=== PATIENT | female | born 1945 | race Caucasian/White ===

== ENCOUNTER 2021-06-20 22:11 | Inpatient (IN) | payer MEDICARE, BC ==
[2021-06-20] MEDS ORDERED: SODIUM CHLORIDE 0.9% 1,000 ML IV STA (22:21)
[2021-06-20] MEDS ORDERED: ONDANSETRON 4 MG/2 ML VIAL IVP PRN (22:21)
[2021-06-20] MEDS ORDERED: MORPHINE SULFATE 4 MG/ML SYRINGE IV STA (22:21)
[2021-06-20] MEDS ORDERED: NALOXONE 0.4 MG/ML 1 ML VIAL IV PRN (22:21)
--- NOTE | 2021-06-20 22:47 | ED ---
Fall HPI - General Chief Complaint: Fall Stated Complaint: Rt Hip Fracture Time Seen by Provider: 06/20/21 22:19 Source: EMS, old records reviewed Mode of arrival: EMS Limitations: altered mental status (Dementia) - History of Present Illness Initial Comments: This is a 75-year-old female who is a fall fall from standing likely history obtained by EMS patient presents today for right hip fracture herself is unable patient has pain right hip pain but no other significant injury is noticed MD Complaint: fall -: unknown Fall From: standing When Fall Occurred: unsure Fall Witnessed: no Place Fall Occurred: senior care[facility] Loss of Consciousness: none Prolonged Down Time?: no Symptoms Prior to Fall: none Location - Extremities: Right: Thigh Severity: severe Severity scale (1-10): 9 Quality: sharp Context: tripped/slipped Associated Symptoms: denies - Related Data Home Medications Medication Instructions Recorded Confirmed Acetaminophen [Tylenol Extra 500 mg PO QID 06/20/21 06/20/21 Strength] Aspirin 81 mg PO DAILY@0700 06/20/21 06/20/21 Furosemide [Lasix] 20 mg PO DAILY@0700 06/20/21 06/20/21 LORazepam [Ativan] 0.5 mg PO TID@0700,1300,1900 06/20/21 06/20/21 Mag Hydrox/Aluminum Hyd/Simeth 30 ml PO Q6H PRN 06/20/21 06/20/21 [Mylanta Maximum Strength Liq] Memantine [Namenda] 10 mg PO BID@0700,1900 06/20/21 06/20/21 Mirtazapine [Remeron] 15 mg PO HS@1900 06/20/21 06/20/21 Omeprazole 20 mg PO HS@1900 06/20/21 06/20/21 Sertraline [Zoloft] 100 mg PO DAILY@0700 06/20/21 06/20/21 Allergies Allergy/AdvReac Type Severity Reaction Status Date / Time codeine Allergy Unknown Verified 06/20/21 22:21 zolpidem [From Ambien] Allergy Unknown Verified 06/20/21 22:21 Review of Systems ROS Statement: Those systems with pertinent positive or pertinent negative responses have been documented in the HPI. ROS Other: All systems not noted in ROS Statement are negative. Past Medical History Past Medical History: CVA/TIA, Dementia, GERD/Reflux, Hyperlipidemia, Hypertension, Osteoarthritis (OA) Additional Past Medical History / Comment(s): diverticulosis, gastritis, ulcer of esophagus History of Any Multi-Drug Resistant Organisms: None Reported Past Surgical History: No Surgical Hx Reported Past Psychological History: Depression Smoking Status: Unknown if ever smoked Past Alcohol Use History: None Reported Past Drug Use History: None Reported General Exam Limitations: altered mental status General appearance: alert, in no apparent distress Head exam: Present: atraumatic, normocephalic, normal inspection Eye exam: Present: normal appearance, PERRL, EOMI. Absent: scleral icterus, conjunctival injection, periorbital swelling ENT exam: Present: normal exam, mucous membranes moist Neck exam: Present: normal inspection. Absent: tenderness, meningismus, lymphadenopathy Respiratory exam: Present: normal lung sounds bilaterally. Absent: respiratory distress, wheezes, rales, rhonchi, stridor Cardiovascular Exam: Present: regular rate, normal rhythm, normal heart sounds. Absent: systolic murmur, diastolic murmur, rubs, gallop, clicks GI/Abdominal exam: Present: soft, normal bowel sounds. Absent: distended, tenderness, guarding, rebound, rigid Extremities exam: Present: tenderness, normal capillary refill, other (Significant right hip deformity right leg deformity). Absent: normal inspection, full ROM, pedal edema, joint swelling, calf tenderness Back exam: Present: normal inspection Neurological exam: Present: alert, oriented X3, CN II-XII intact Psychiatric exam: Present: normal affect, normal mood Skin exam: Present: warm, dry, intact, normal color. Absent: rash Course Vital Signs 06/20/21 22:21 Temperature 99.2 F Pulse Rate 69 Respiratory 18 Rate Blood Pressure 174/73 O2 Sat by Pulse 96 Oximetry - Reevaluation(s) Reevaluation #1: 06/20/21 22:45 Medical record is reviewed Reevaluation #2: 06/20/21 22:46 Pain is controlled Reevaluation #3: 06/20/21 22:46 Patient family informed results and questions answered - Consultations Consultation #1: spoke w ortho and ok for admission Medical Decision Making - Medical Decision Making 75 female to the ED for fall with right hip fracture a shunt has no other significant findings aside from that. Patient will be admitted for orthopedic evaluation treatment patient is a DO NOT RESUSCITATE no code with severe dementia - Radiology Data Radiology results: report reviewed (Chest x-ray negative for acute disease x-ray right hip is positive for fracture), image reviewed Disposition Clinical Impression: Fall, Closed right hip fracture Disposition: ADMITTED IP TO THIS HOSP Condition: Fair Is patient prescribed a controlled substance at d/c from ED?: No Referrals: Francesco Wilson MD [Primary Care Provider] - 1-2 days
[2021-06-20 23:46] LABS: Basophils % (A) 0 %; Eosinophils % (A) 0 %; HCT 33.9 % (34.0-46.0); HGB 10.9 gm/dL (11.4-16.0); Lymphocytes # (A) 0.9 k/uL (1.0-4.8); Lymphocytes % (A) 9 %; MCH 28.8 pg (25.0-35.0); MCHC 32.2 g/dL (31.0-37.0); MCV 89.6 fL (80.0-100.0); Mean Platelet Volume 7.9; Monocytes # (A) 0.6 k/uL (0-1.0); Monocytes % (A) 6 %; Neutrophils # (A) 8.1 k/uL (1.3-7.7); Neutrophils % (A) 83 %; Platelet Count 159 k/uL (150-450); RBC 3.79 m/uL (3.80-5.40); RDW 14.8 % (11.5-15.5); WBC 9.8 k/uL (3.8-10.6)
[2021-06-20 23:56] LABS: Partial Thromboplastin Time 23.5 sec (22.0-30.0); Prothrombin Time 10.7 sec (9.0-12.0)
--- NOTE | 2021-06-21 | XR ---
EXAMINATION TYPE: XR chest 1V portable DATE OF EXAM: 06/20/2021 COMPARISON: NONE HISTORY: Fall. Pain TECHNIQUE: Single view FINDINGS: There is some mild infiltrate lateral left lung base. The other lung fortune are clear. Thor acic aorta is atheromatous. There are no hilar masses. No pneumothorax. No obvious rib fracture. IMPRESSION: Small left basilar pulmonary infiltrate consistent with mild pneumonia. Normal heart.
[2021-06-21 00:08] LABS: Albumin 3.9 g/dL (3.5-5.0); Calcium 9.3 mg/dL (8.4-10.2); Magnesium 1.9 mg/dL (1.6-2.3); Phosphorus 3.5 mg/dL (2.5-4.5); Total Bilirubin 0.9 mg/dL (0.2-1.3); Total Protein 6.9 g/dL (6.3-8.2)
[2021-06-21 01:53] LABS: Appearance,Urine Cloudy (Clear); Bacteria,Urine Moderate /hpf; Bilirubin,Urine Negative (Negative); Blood,Urine Small (Negative); Color,Urine Yellow; Glucose,Urine (UA) Negative (Negative); Hyaline Casts,Urine 5 /lpf (0-2); Ketones,Urine Negative (Negative); Leukocyte Esterase,Urine Large (Negative); Mucus,Urine Many /hpf; Nitrite,Urine Negative (Negative); PH, Urine 5.5 (5.0-8.0); Protein,Urine Trace (Negative); RBC,Urine 8 /hpf (0-5); Urobilinogen,Urine <2.0 mg/dL (<2.0); WBC,Urine >182 /hpf (0-5)
[2021-06-21 06:19] LABS: Basophils # (A) 0.1 k/uL (0-0.2); Basophils % (A) 1 %; Eosinophils # (A) 0.1 k/uL (0-0.7); Eosinophils % (A) 1 %; HCT 36.8 % (34.0-46.0); HGB 11.1 gm/dL (11.4-16.0); Hypochromasia Marked; Lymphocytes # (A) 1.3 k/uL (1.0-4.8); Lymphocytes % (A) 13 %; MCH 29.4 pg (25.0-35.0); MCHC 30.3 g/dL (31.0-37.0); Mean Platelet Volume 8.4; Monocytes # (A) 0.8 k/uL (0-1.0); Monocytes % (A) 9 %; Neutrophils # (A) 7.3 k/uL (1.3-7.7); Neutrophils % (A) 75 %; Platelet Count 131 k/uL (150-450); RDW 14.4 % (11.5-15.5); WBC 9.7 k/uL (3.8-10.6)
[2021-06-21 06:31] LABS: Calcium 8.9 mg/dL (8.4-10.2)
[2021-06-21] MEDS ORDERED: AZITHROMYCIN 500 MG in SODIUM CHLORIDE 0.9% 250 ML IVPB STA (06:58)
[2021-06-21 07:00] LABS: Potassium 4.3 mmol/L (3.5-5.1)
--- NOTE | 2021-06-21 07:28 | XR ---
EXAMINATION TYPE: XR Hip RT and AP Pelvis DATE OF EXAM: 06/21/2021 COMPARISON: NONE HISTORY: Pain TECHNIQUE: A single AP view of the pelvis is obtained. Two views of the right hip are obtained. FINDINGS: There is a displaced right femoral neck comminuted fracture. Diffuse osteopenia. Severe ar thropathy left hip and degenerative change lower lumbar spine. SI joints symmetric. IMPRESSION: 1. Displaced right femoral neck fracture.
--- NOTE | 2021-06-21 07:46 | P.HPOR ---
History of Present Illness H&P Date: 06/21/21 Chief Complaint: Right hip pain The patient's a 75-year-old female with severe dementia brought in from a [facility] after a suspected fall with deformity of the right leg. She is a poor historian and gives no details. Review of Systems As per HPI Past Medical History Past Medical History: CVA/TIA, Dementia, GERD/Reflux, Hyperlipidemia, Hypertension, Osteoarthritis (OA) Additional Past Medical History / Comment(s): diverticulosis, gastritis, ulcer of esophagus History of Any Multi-Drug Resistant Organisms: None Reported Past Surgical History: Orthopedic Surgery Past Psychological History: Depression Smoking Status: Unknown if ever smoked Past Alcohol Use History: None Reported Past Drug Use History: None Reported Medications and Allergies Home Medications Medication Instructions Recorded Confirmed Type Acetaminophen [Tylenol Extra 500 mg PO QID 06/20/21 06/20/21 History Strength] Aspirin 81 mg PO DAILY@0700 06/20/21 06/20/21 History Furosemide [Lasix] 20 mg PO DAILY@0700 06/20/21 06/20/21 History LORazepam [Ativan] 0.5 mg PO TID@0700,1300,1900 06/20/21 06/20/21 History Mag Hydrox/Aluminum Hyd/Simeth 30 ml PO Q6H PRN 06/20/21 06/20/21 History [Mylanta Maximum Strength Liq] Memantine [Namenda] 10 mg PO BID@0700,1900 06/20/21 06/20/21 History Mirtazapine [Remeron] 15 mg PO HS@1900 06/20/21 06/20/21 History Omeprazole 20 mg PO HS@1900 06/20/21 06/20/21 History Sertraline [Zoloft] 100 mg PO DAILY@0700 06/20/21 06/20/21 History Allergies Allergy/AdvReac Type Severity Reaction Status Date / Time codeine Allergy Unknown Verified 06/20/21 22:21 zolpidem [From Ambien] Allergy Unknown Verified 06/20/21 22:21 Physical Examination - Hip right Gait: other (Nonweightbearing) Tenderness with palpation: anterior Pain with motion: other (Pain with any attempted range of motion right hip) Results Alert and oriented 0, arousable Nontender cervical, thoracic, and lumbar spine Nontender bilateral upper extremities Pelvis stable to external rotation stress Shortening and external rotation right lower extremity Pain with logroll right hip Nontender bilateral knees, ankles, and feet Distal neurovascular exam intact bilateral lower extremities - Labs Labs: Abnormal Lab Results - Last 24 Hours (Table) 06/20/21 06/20/21 06/21/21 Range/Units 23:34 23:34 00:57 RBC 3.79 L (3.80-5.40) m/uL Hgb 10.9 L (11.4-16.0) gm/dL Hct 33.9 L (34.0-46.0) % MCHC (31.0-37.0) g/dL Plt Count (150-450) k/uL Neutrophils # 8.1 H (1.3-7.7) k/uL Lymphocytes # 0.9 L (1.0-4.8) k/uL Chloride (98-107) mmol/L BUN 27 H (7-17) mg/dL Glucose 118 H (74-99) mg/dL Urine Appearance Cloudy H (Clear) Urine Protein Trace H (Negative) Urine Blood Small H (Negative) Ur Leukocyte Esterase Large H (Negative) Urine RBC 8 H (0-5) /hpf Urine WBC >182 H (0-5) /hpf Urine WBC Clumps Few H (None) /hpf Urine Bacteria Moderate H (None) /hpf Hyaline Casts 5 H (0-2) /lpf Urine Mucus Many H (None) /hpf 06/21/21 06/21/21 Range/Units 05:45 05:45 RBC (3.80-5.40) m/uL Hgb 11.1 L (11.4-16.0) gm/dL Hct (34.0-46.0) % MCHC 30.3 L (31.0-37.0) g/dL Plt Count 131 L (150-450) k/uL Neutrophils # (1.3-7.7) k/uL Lymphocytes # (1.0-4.8) k/uL Chloride 111 H (98-107) mmol/L BUN 23 H (7-17) mg/dL Glucose 102 H (74-99) mg/dL Urine Appearance (Clear) Urine Protein (Negative) Urine Blood (Negative) Ur Leukocyte Esterase (Negative) Urine RBC (0-5) /hpf Urine WBC (0-5) /hpf Urine WBC Clumps (None) /hpf Urine Bacteria (None) /hpf Hyaline Casts (0-2) /lpf Urine Mucus (None) /hpf H & H 06/20/21 06/21/21 Range/Units 23:34 05:45 Hgb 10.9 L 11.1 L (11.4-16.0) gm/dL Hct 33.9 L 36.8 (34.0-46.0) % Coagulation 06/20/21 Range/Units 23:34 INR 1.0 (<1.2) Result Diagrams: 06/21/21 05:45 06/21/21 05:45 - Diagnostic results Hip x-ray: image reviewed (Displaced right 4 part intertrochanteric femur fracture) Assessment and Plan Assessment: Displaced right 4 part intertrochanteric femur fracture Severe dementia Plan: At this point she has a significantly displaced fracture and I would recommend surgical intervention to facilitate mobilization along with for pain control. We will await medical clearance in addition we will need her family to change her DO NOT RESUSCITATE status. Time with Patient: Greater than 30
[2021-06-21] MEDS: PANTOPRAZOLE 40 MG/10 ML VIAL IV SCH (09:23)
[2021-06-21] MEDS: MORPHINE SULFATE 4 MG/ML SYRINGE IV PRN ×2 (09:30→17:25)
[2021-06-21] MEDS: SODIUM CHLORIDE 0.9% 1,000 ML IV SCH ×2 (12:35→23:10)
[2021-06-21] MEDS ORDERED: IPRATROPIUM-ALBUTEROL 3 ML NEB INHALATION PRN (14:04)
--- NOTE | 2021-06-21 18:34 | CONS ---
CONSULTATION CHIEF COMPLAINT: Right hip pain. HISTORY OF PRESENT ILLNESS: This 75-year-old woman with a past medical history of CVA, dementia, GERD, hypertension, hyperlipidemia, history of DJD being followed by Dr. Velez in [facility] was admitted with probably fracture and suspected fall with deformity of the right leg. The patient is stuporous, unable to give coherent history. Most of the history taken from my discussion with staff and review of the chart at this time. The patient was found to have displaced right intertrochanteric femoral fracture. The patient is NO CODE, NO CPR, NO VENT at this time. Patient is currently medically stable. Vitals are stable. The patient is saturating 92% on room air. Minimal right lower lobe pneumonia is suspected. Antibiotics initiated. PAST MEDICAL HISTORY: History of CVA, TIA, dementia, GERD, hypertension, hyperlipidemia, DJD. MEDICATIONS: Home medications prior to admission include: Zoloft, Omeprazole, Tylenol, Remeron, magnesium oxide, Namenda, Ativan, Lasix, aspirin. Doses reviewed. ALLERGIES: CODEINE AND AMBIEN. Family history, social history and review of systems: Could not be taken because of above mentioned, the patient is stuporous. PHYSICAL EXAMINATION: Pulse 84, blood pressure 160/87, respirations 16, temperature 98.6, pulse ox 92% on room air. HEENT: Conjunctivae normal. NECK: No JVD. CARDIOVASCULAR: S1, S2 muffled. RESPIRATION: A few scattered rhonchi. No crackles. ABDOMEN: Soft, nontender. No mass palpable. LEGS: Deformity present. NERVOUS SYSTEM could not be examined completely. The patient is stuporous. SKIN: No ulcer, rash and no bleeding. JOINTS: No active deforming arthropathy. LABS: WBC 9.2, hemoglobin 11.1 sodium 140, potassium 4.3. UA possible UTI. ASSESSMENT: 1. Displaced right intertrochanteric femur fracture. 2. Severe dementia. 3. Acute urinary tract infection present on admission. 4. Possible right lower lobe pneumonia. 5. History of cerebrovascular accident/transient ischemic attack. 6. Gastroesophageal reflux disease. 7. Hypertension. 8. Hyperlipidemia. 9. Degenerative joint disease. 10.History of gastritis and esophagitis. 11.History of breast surgery. 12.Cholecystectomy. 13.History of depression. 14.NO CODE, NO CPR, NO VENT. RECOMMENDATION: In this 75 -year-old woman who presented with multiple complex medical issues, at this time, patient is medically stable. The patient has multiple complex medical issues, as listed above. The prognosis is guarded, but however, the patient is medically cleared for surgery with additional risk as mentioned earlier. Otherwise once again the patient is currently medically stable. We will continue to monitor. I would also recommend updrafts and maintain oxygen saturation also. We will follow the patient closely with you. Thank you Dr. Rm, for letting us participate in the care of this patient. See orders for details. MMODL / IJN: [id number] /
[2021-06-21] MEDS: IPRATROPIUM-ALBUTEROL 3 ML NEB INHALATION SCH (19:21)
[2021-06-21] MEDS: MEMANTINE 10 MG TAB PO SCH (20:13)
[2021-06-21] MEDS: MIRTAZAPINE 15 MG TAB PO SCH (20:13)
[2021-06-21] MEDS: LORazepam 0.5 MG TAB PO SCH (20:13)
[2021-06-22] MEDS: MORPHINE SULFATE 4 MG/ML SYRINGE IV PRN ×2 (04:02→11:45)
[2021-06-22 06:09] LABS: Basophils % (A) 0 %; Eosinophils % (A) 0 %; HCT 32.1 % (34.0-46.0); HGB 10.1 gm/dL (11.4-16.0); Hypochromasia Slight; Lymphocytes # (A) 0.7 k/uL (1.0-4.8); Lymphocytes % (A) 7 %; MCHC 31.5 g/dL (31.0-37.0); Mean Platelet Volume 7.8; Monocytes # (A) 0.6 k/uL (0-1.0); Monocytes % (A) 6 %; Neutrophils # (A) 8.1 k/uL (1.3-7.7); Neutrophils % (A) 85 %; Platelet Count 148 k/uL (150-450); RBC 3.49 m/uL (3.80-5.40); RDW 14.9 % (11.5-15.5); WBC 9.5 k/uL (3.8-10.6)
[2021-06-22 06:22] LABS: MCV 91.8 fL (80.0-100.0)
[2021-06-22 06:27] LABS: Calcium 8.5 mg/dL (8.4-10.2); Potassium 3.6 mmol/L (3.5-5.1)
[2021-06-22] MEDS ORDERED: IV FLUID CONTINUATION 300 ML IV ONE (08:01)
[2021-06-22] MEDS ORDERED: fentaNYL (PF) 50 MCG/ML 2 ML AMP ONE (08:27)
[2021-06-22] MEDS ORDERED: MIDAZOLAM 2 MG/2 ML VIAL ONE (08:27)
[2021-06-22] MEDS ORDERED: ceFAZolin 1,000 MG VIAL ONE (08:27)
[2021-06-22] MEDS ORDERED: SODIUM CHLORIDE 0.9% 250 ML BAG ONE (08:27)
[2021-06-22] MEDS ORDERED: ceFAZolin 1,000 MG VIAL IVPB ONE (08:50)
[2021-06-22] MEDS ORDERED: ceFAZolin 1,000 MG in SODIUM CHLORIDE 0.9% 1,000 ML IRRIGATION ONE (09:09)
[2021-06-22] MEDS ORDERED: LACTATED RINGERS 1,000 ML IV ONE (09:23)
[2021-06-22] MEDS: IPRATROPIUM-ALBUTEROL 3 ML NEB INHALATION SCH ×3 (09:43→19:14)
--- NOTE | 2021-06-22 09:57 | P.OP ---
Date of Procedure: 06/22/21 Preoperative Diagnosis: Displaced right 4 part intertrochanteric femur fracture Postoperative Diagnosis: Same Procedure(s) Performed: Trochanteric intramedullary nailing right intertrochanteric femur fracture Implants: Arthrex short 125 trochanteric nail, 95 compression screw, 38 mm x 4.5 mm distal locking screw Anesthesia: spinal Surgeon: Nikos Rm Instrument Fitter #1: Waqas Madera Estimated Blood Loss (ml): 50 Pathology: none sent Condition: stable Disposition: PACU Indications for Procedure: The patient's a 75-year-old female presents with a displaced right intertrochanteric femur fracture from a fall. A discussion of the risks and benefits of operative intervention was made with the power of patent attorney. Informed consent was obtained. Specific risks of surgery to include infection, neurovascular injury, development of blood clots, possible development nonunion/malunion need for subsequent procedures was discussed. Informed consent was obtained. Operative Findings: As below Description of Procedure: The patient brought to the operating room, and after induction of spinal anesthesia was placed supine on the fracture table. Bony prominences were appropriately padded. The fracture was reduced with longitudinal traction and internal rotation of the right lower extremity. This is verified with fluoroscopy on the AP and lateral views. The right lower extremity was prepped and draped in normal fashion. A 10 cm incision was made proximally greater trochanter. Skin and subcu tissues were divided sharply. Electrocautery was used for hemostasis. The fascia was split in line with the skin incision. Blunt dissection was then made down to the level the greater trochanter. A starting awl was placed in the tip the greater trochanter with the aid of fluoroscopy. A ball-tipped guidewire was inserted. The distal canal was reamed to 13.5 mm. The proximal portion of the femur was reamed to 16.5 mm to the level of the lesser trochanter. A short 125 trochanteric nail was gently inserted over the guidewire. The guidewire was then removed. This was taken to the appropriate depth with the aid of fluoroscopy. A threaded guidepin was placed into the centercenter position of the femoral head and neck on the AP and lateral views to within 5 mm of the articular surface. A triple reamer was used to depth of 95 mm. A 95 mm compression screw was inserted and locked in the nail. The central pin and the compression screw was removed to allow for future compression at the fracture site. The 4.5 mm distal locking screw was inserted with good purchase. Final fluoroscopic views to include AP and lateral views of the hip showed adequate reduction of the fracture and placement of the implant. The wound was irrigated normal saline. The fascia was closed with running 0 Vicryl suture. Subcu tissues were reapproximated interrupted 2-0 Vicryl sutures. Skin was reapproximated with chemo. A sterile dressing was applied. The patient was then transferred to recovery room in fair condition. Blood loss was estimated at 50 mL. No complications were incurred. Hilario PETE assisted from major components the case to include positioning, exposure, implantation, and closure.
[2021-06-22] MEDS: FUROSEMIDE 20 MG TAB PO SCH (10:47)
[2021-06-22] MEDS: MEMANTINE 10 MG TAB PO SCH ×2 (10:48→21:26)
[2021-06-22] MEDS: LORazepam 0.5 MG TAB PO SCH ×3 (10:48→20:35)
[2021-06-22] MEDS: PANTOPRAZOLE 40 MG TABLET PO SCH (10:48)
--- NOTE | 2021-06-22 11:19 | FL ---
EXAMINATION TYPE: FL guidance operating room, XR Hip Complete RT DATE OF EXAM: 06/22/2021 FLUOROSCOPY Fluoroscopy time of 60 seconds was used during right hip fracture fixation. 5 image/s document/s the procedure.
[2021-06-22 11:45] LABS: Glucose,Whole Blood 90 mg/dL (75-99)
[2021-06-22] MEDS: AZITHROMYCIN 500 MG in SODIUM CHLORIDE 0.9% 250 ML IVPB SCH (13:31)
[2021-06-22] MEDS: PANTOPRAZOLE 40 MG/10 ML VIAL IV SCH (14:40)
--- NOTE | 2021-06-22 15:17 | PN ---
PROGRESS NOTE DATE OF SERVICE: 06/22/2021 This 75-year-old woman who was admitted with a displaced right intertrochanteric femur fracture underwent trochanteric intramedullary nailing by Orthopedic Surgery. The patient is stuporous at this time. PHYSICAL EXAMINATION: Pulse is 77, blood pressure is 133/64, respiration 18, temperature 97.2, pulse ox 94% on 2 L. HEENT: Conjunctivae normal. NECK: No jugular venous distention. CARDIOVASCULAR: S1, S2 muffled. RESPIRATION: Breath sounds diminished at the bases. No rhonchi. No crackles. ABDOMEN: Soft. LEGS: Status post surgery. NERVOUS SYSTEM: No focal deficit. LAB STUDIES: WBC ntd hemoglobin 10.1. Other labs are noted. ASSESSMENT: 1. Displaced right intertrochanteric femur fracture, status post trochanteric intramedullary nailing. 2. Severe dementia. 3. Acute urinary tract infection, present on admission. 4. Possible right lower lobe pneumonia, possibly Gram-negative, present on admission, on antibiotic. 5. History of cerebrovascular accident, transient ischemic attack. 6. Gastroesophageal reflux disease. 7. Hypertension. 8. Hyperlipidemia. 9. History of degenerative joint disease. 10.History of gastritis and esophagitis. 11.History of breast surgery. 12.Cholecystectomy. 13.History of depression. 14.NO CODE, NO CPR, NO VENT. RECOMMENDATIONS AND DISCUSSION: I recommend to continue current medications, continue with the monitoring, symptomatic treatment. Continue with empiric antibiotics. Otherwise, DVT prophylaxis. Closely follow with Orthopedic Surgery. Proton pump inhibitors. Continue the rest of the medications. Further recommendations to follow. Will repeat labs tomorrow. MMODL / IJN: [id number] / MTDD
[2021-06-22] MEDS: HEPARIN SODIUM,PORCINE/PF 5,000 UNIT/0.5 ML SYRINGE SQ SCH (15:50)
[2021-06-22] MEDS: SODIUM CHLORIDE 0.9% 1,000 ML IV SCH (17:28)
[2021-06-22] MEDS: MIRTAZAPINE 15 MG TAB PO SCH (21:26)
[2021-06-23] MEDS: HEPARIN SODIUM,PORCINE/PF 5,000 UNIT/0.5 ML SYRINGE SQ SCH ×3 (01:28→19:49)
[2021-06-23] MEDS: MORPHINE SULFATE 4 MG/ML SYRINGE IV PRN ×2 (01:28→06:34)
[2021-06-23] MEDS: SODIUM CHLORIDE 0.9% 1,000 ML IV SCH ×2 (05:28→17:21)
[2021-06-23 07:57] LABS: Basophils % (A) 0 %; Eosinophils # (A) 0.1 k/uL (0-0.7); Eosinophils % (A) 1 %; HCT 27.6 % (34.0-46.0); HGB 8.9 gm/dL (11.4-16.0); Hypochromasia Slight; Lymphocytes # (A) 0.6 k/uL (1.0-4.8); Lymphocytes % (A) 7 %; MCH 29.5 pg (25.0-35.0); MCHC 32.1 g/dL (31.0-37.0); Mean Platelet Volume 8.1; Monocytes # (A) 0.4 k/uL (0-1.0); Monocytes % (A) 5 %; Neutrophils # (A) 7.2 k/uL (1.3-7.7); Neutrophils % (A) 86 %; Platelet Count 143 k/uL (150-450); WBC 8.3 k/uL (3.8-10.6)
[2021-06-23 08:17] LABS: Calcium 8.1 mg/dL (8.4-10.2); Potassium 3.4 mmol/L (3.5-5.1)
[2021-06-23] MEDS: IPRATROPIUM-ALBUTEROL 3 ML NEB INHALATION SCH ×3 (08:26→21:31)
[2021-06-23] MEDS: FUROSEMIDE 20 MG TAB PO SCH (08:43)
[2021-06-23] MEDS: MEMANTINE 10 MG TAB PO SCH ×2 (08:45→19:49)
[2021-06-23] MEDS: PANTOPRAZOLE 40 MG TABLET PO SCH (08:45)
[2021-06-23] MEDS ORDERED: ACETAMINOPHEN TAB 325 MG TAB PO PRN (08:54)
[2021-06-23] MEDS: AZITHROMYCIN 500 MG in SODIUM CHLORIDE 0.9% 250 ML IVPB SCH (09:11)
[2021-06-23] MEDS: traMADol 50 MG TAB PO PRN ×2 (09:19→19:48)
--- NOTE | 2021-06-23 09:38 | P.PN ---
Subjective Progress Note Date: 06/23/21 Principal diagnosis: Status post IM nail right intertrochanteric femur fracture Patient was evaluated at bedside today, she is sleeping, she does have a sitter. Patient was a little bit agitated and combative through the night and into the morning. I did discuss this with nursing prior to examining the patient. We have adjusted the medication for pain. Objective - Vital Signs Vital signs: Vital Signs Temp 98.4 F 06/23/21 04:40 Pulse 97 06/23/21 04:40 Resp 20 06/23/21 04:40 BP 159/72 06/23/21 04:40 Pulse Ox 92 L 06/23/21 04:40 Intake & Output 06/22/21 06/23/21 06/23/21 18:59 06:59 18:59 Intake Total 561 100 Output Total 750 500 Balance -189 -400 Intake: IV 501 Oral 60 100 Output: Urine 700 500 Estimated Blood Loss 50 Other: Voiding Method Indwelling Catheter Indwelling Catheter - Exam Right lower extremity: Postoperative dressing is in good position and condition. There is minimal soft tissue swelling and ecchymosis surrounding the medial and lateral aspects of the incision. Calf is soft with palpation. Dorsalis pedis pulses 2+. - Labs CBC & Chem 7: 06/23/21 07:35 06/23/21 07:35 Labs: Abnormal Lab Results - Last 24 Hours (Table) 06/23/21 06/23/21 Range/Units 07:35 07:35 RBC 3.00 L (3.80-5.40) m/uL Hgb 8.9 L (11.4-16.0) gm/dL Hct 27.6 L (34.0-46.0) % Plt Count 143 L (150-450) k/uL Lymphocytes # 0.6 L (1.0-4.8) k/uL Potassium 3.4 L (3.5-5.1) mmol/L Chloride 115 H (98-107) mmol/L Glucose 110 H (74-99) mg/dL Calcium 8.1 L (8.4-10.2) mg/dL Microbiology - Last 24 Hours (Table) 06/21/21 07:45 Blood Culture - Preliminary Blood No Growth after 24 hours 06/21/21 08:00 Blood Culture - Preliminary Blood No Growth after 24 hours 06/21/21 00:57 Urine Culture - Preliminary Urine,Voided Group D Enterococcus Assessment and Plan Assessment: Postoperative day #1 status post IM nail right intertrochanteric femur fracture Acute blood loss anemia, expected surgical Plan: Pain control, I did adjust her pain medication, IV pain medication has been discontinued and low-dose oral medication has been ordered DVT prophylaxis, continue with current medications Wound care: Will change dressing on 06/24/2021 Ice and elevate the right lower extremity Weight-bear as tolerated with walker, physical therapy evaluation Other medical doctor and recommendations Discharge planning: Patient does reside at [facility], plan for discharge back to that facility in the next day or two Time with Patient: Less than 30
[2021-06-23] MEDS: KETOROLAC 30 MG/ML 1 ML VIAL IVP SCH ×3 (12:51→23:55)
[2021-06-23] MEDS: POTASSIUM CHLORIDE ER 20 MEQ TAB.ER PO SCH ×2 (17:00→17:34)
[2021-06-23] MEDS: LORazepam 0.5 MG TAB PO SCH ×3 (17:12→18:31)
[2021-06-23] MEDS ORDERED: Potassium Replacement Protocol 1 EACH MISC MISCELLANE PRN (17:19)
[2021-06-23] MEDS: AMPICILLIN-SULBACTAM 3 GM in SODIUM CHLORIDE 0.9% 100 ML IVPB SCH ×2 (17:33→23:55)
[2021-06-23] MEDS: FERROUS SULFATE 325 MG TAB PO SCH (17:40)
--- NOTE | 2021-06-23 17:41 | PN ---
PROGRESS NOTE DATE OF SERVICE: 06/23/2021 This 75-year-old woman who was admitted with a displaced right intertochanteric fracture had surgery. The patient continues to be stuporous with very minimal p.o. intake. The hemoglobin is 8.8, white count is normal. Potassium is 3.2, which has being corrected. Patient also has UTI, receiving antibiotics. PHYSICAL EXAMINATION: Patient is stuporous. Pulse is 97, blood pressure 159/72, respiration 20, temperature 98.4, pulse ox 92% on room air HEENT: Conjunctivae normal. Oral mucosa moist. NECK: No jugular venous distention. No lymph node enlargement. CARDIOVASCULAR: S1, S2, muffled. No S3, no S4, RESPIRATORY: Diminished breath sounds at the bases. A few scattered rhonchi. ABDOMEN: Soft, nontender. LEGS: Status post surgery. NERVOUS SYSTEM: Could not be examined, completely stuporous. LABS: WBC 8.2, hemoglobin is 8.9. Otherwise, sodium 140, potassium 3.4. The cultures are showing group B Enterococcus in the urine culture. ASSESSMENT: 1. Displaced right intertrochanteric femur fracture status post intertrochanteric intramedullary nailing. 2. Severe dementia. 3. Acute urinary tract infection with group D Enterococcus. 4. Possible right lower lobe pneumonia possibly gram-negative present on admission, on antibiotics. 5. History of cerebrovascular accident, transient ischemic attack. 6. Gastroesophageal reflux disease. 7. Hypertension. 8. Hyperlipidemia. 9. History of DJD. 10.History of gastric sleeve surgery. 11.History of breast surgery. 12.History of cholecystectomy. 13.History of depression. 14.NO CODE, NO CPR, NO VENT. RECOMMENDATIONS AND DISCUSSION: Continue current management and symptomatic treatment. Otherwise, change antibiotic to Unasyn/ Closely follow with Orthopedic Surgery. Blood cultures are positive so far and guarded prognosis. Further recommendations to follow. MMODL / IJN: [id number] /
[2021-06-23] MEDS: MIRTAZAPINE 15 MG TAB PO SCH (19:49)
[2021-06-23] MEDS ORDERED: diphenhydrAMINE 50 MG/ML 1 ML VIAL IVP ONE (21:54)
[2021-06-24] MEDS: KETOROLAC 30 MG/ML 1 ML VIAL IVP SCH ×2 (05:52→12:20)
[2021-06-24] MEDS: SODIUM CHLORIDE 0.9% 1,000 ML IV SCH (05:53)
[2021-06-24 08:19] LABS: Basophils % (A) 0 %; Eosinophils # (A) 0.1 k/uL (0-0.7); Eosinophils % (A) 2 %; HCT 27.4 % (34.0-46.0); HGB 8.7 gm/dL (11.4-16.0); Hypochromasia Slight; Lymphocytes # (A) 0.7 k/uL (1.0-4.8); Lymphocytes % (A) 8 %; MCH 29.1 pg (25.0-35.0); MCHC 31.6 g/dL (31.0-37.0); MCV 91.9 fL (80.0-100.0); Mean Platelet Volume 7.9; Monocytes # (A) 0.5 k/uL (0-1.0); Monocytes % (A) 5 %; Neutrophils # (A) 7.2 k/uL (1.3-7.7); Neutrophils % (A) 83 %; Platelet Count 182 k/uL (150-450); RBC 2.99 m/uL (3.80-5.40); RDW 14.7 % (11.5-15.5); WBC 8.6 k/uL (3.8-10.6)
[2021-06-24 08:25] LABS: Potassium 3.1 mmol/L (3.5-5.1)
[2021-06-24] MEDS: AMPICILLIN-SULBACTAM 3 GM in SODIUM CHLORIDE 0.9% 100 ML IVPB SCH (08:39)
[2021-06-24] MEDS: PANTOPRAZOLE 40 MG TABLET PO SCH (08:40)
[2021-06-24] MEDS: HEPARIN SODIUM,PORCINE/PF 5,000 UNIT/0.5 ML SYRINGE SQ SCH (08:40)
[2021-06-24] MEDS: MEMANTINE 10 MG TAB PO SCH (08:40)
[2021-06-24] MEDS: LORazepam 0.5 MG TAB PO SCH ×2 (08:40→13:26)
[2021-06-24] MEDS: FERROUS SULFATE 325 MG TAB PO SCH (08:40)
[2021-06-24] MEDS: FUROSEMIDE 20 MG TAB PO SCH (08:42)
[2021-06-24 08:51] VITALS: RESP 21
[2021-06-24] MEDS: AZITHROMYCIN 500 MG in SODIUM CHLORIDE 0.9% 250 ML IVPB SCH (10:11)
[2021-06-24] MEDS ORDERED: 0.9% NACL WITH KCL 40 MEQ/L 1,000 ML IV SCH (11:06)
--- NOTE | 2021-06-24 11:19 | P.DS ---
Providers Date of admission: 06/20/21 22:22 Expected date of discharge: 06/24/21 Attending physician: Nikos Rm Consults: 06/20/21 22:26 Consult Physician Routine Consulting Provider: Shireen Aguilar Consult Reason/Comments: [employer] Do you want consulting provider notified?: Yes Primary care physician: [facility] Course: Date of admission: 06/20/2021 Date of discharge: 06/24/2019 Admission diagnosis: Displaced right intertrochanteric femur fracture Discharge diagnosis: Status post IM nail right intertrochanteric femur fracture Attending physician: Dr. Rm Surgical procedures: Intramedullary nail right intertrochanteric femur fracture Brief history: Patient is a 75-year-old female who was evaluated to [facility] after falling rehab injuring her right lower extremity. It was determined the patient had a displaced right intertrochanteric femur fracture. Patient was placed under our care with the plan for surgical intervention, appropriate consults replace for clearance and medical management. Patient underwent surgery on 06/22/2021 Hospital course: Details of patient's surgery can be found in operative report. Patient tolerated the procedure well and was subsequently transported to orthopedic floor. Patient's orthopeidc and medical care was provided daily. Patient had daily laboratory tests performed for evaluation of overall blood counts. Patient had daily physical therapy to include strengthening range of motion as well as education with walker ambulation. Patient was treated with heparin for their postoperative DVT prophylaxis during their inpatient stay. Patient was noted to have a relatively uneventful postoperative course. Patient reported satisfactory pain control with oral pain medications by postoperative day 0. Patient showed satisfactory progress with physical therapy. Patient moved steadily through the program and had no difficulty meeting the goals by postoperative day 2. Given patient's otherwise satisfactory course and having met physical therapy goals, plan is to discharge patient rehab on postoperative day 2. Discharge condition/disposition: Patient will be discharged rehab in stable condition. Discharge medications: Instructions are given on resumption of patient's normal daily medications per primary care recommendation, in addition patient will be prescribed Colace 100 mg, ferrous sulfate 325 mg, heparin 5000 units, Mobic 15 mg. Discharge instructions: 1. Wound care and infection precautions, [keep incision dry and covered while showering], no lotions, creams, moisturizers. No soaking, tubs, pools, hottubs. Do not scrub over the incision. 2. Weight-bear [as tolerated] with walker / cane until follow-up. 3. Ice and elevate when necessary. Do not exceed 20 minutes per hour with ice pack. 4. Utilize compression sleeve until seen at first follow up appointment. 5. Visiting nursing care. 6. Home physical therapy. 7. Pain meds and anticoagulants per prescription. 8. Pain medication has potential to cause constipation. Increase oral fluid and fiber intake. Contact primary care provider if you have not had a bowel movement within 48 hours after discharge 9. No anti-inflammatory medication until discussed at first post operative visit, this including Motrin, Aleve, Mobic, Diclofenac. 10. Follow up in office at 2 weeks postop with Hilario Madera PA-C/Tejinder Anne 11. Follow up with your primary care doctor 7-10 days after discharge. 12. Contact [facility] with any questions, . Procedures: Intramedullary nailing right intertrochanteric femur fracture Patient Condition at Discharge: Fair Plan - Discharge Summary Discharge Rx Participant: No New Discharge Prescriptions: New Heparin Sodium,Porcine [Heparin Sodium] 5,000 unit SQ Q12HR #40 each Meloxicam [Mobic] 7.5 mg PO DAILY PRN #30 tab PRN Reason: Pain Ipratropium-Albuterol Nebulize [Duoneb 0.5 mg-3 mg/3 ml Soln] 3 ml INHALATION RT-TID PRN ml PRN Reason: Shortness Of Breath Or Wheezing Acetaminophen Tab [Tylenol] 650 mg PO Q6HR PRN tab PRN Reason: Fever And/ Or Pain Docusate [Colace] 100 mg PO DAILY #30 capsule Ferrous Sulfate [Iron (65 MG Elemental)] 325 mg PO BID #60 tab Ipratropium-Albuterol Nebulize [Duoneb 0.5 mg-3 mg/3 ml Soln] 3 ml INHALATION RT-TID ml Pantoprazole [Protonix] 40 mg PO AC-BRKFST tab Continue Sertraline [Zoloft] 100 mg PO DAILY@0700 Memantine [Namenda] 10 mg PO BID@0700,1900 Aspirin 81 mg PO DAILY@0700 LORazepam [Ativan] 0.5 mg PO TID@0700,1300,1900 #6 tab Omeprazole 20 mg PO HS@1900 Mirtazapine [Remeron] 15 mg PO HS@1900 Mag Hydrox/Aluminum Hyd/Simeth [Mylanta Maximum Strength Liq] 30 ml PO Q6H PRN PRN Reason: Gi Upset/Gas Furosemide [Lasix] 20 mg PO DAILY@0700 Discontinued Acetaminophen [Tylenol Extra Strength] 500 mg PO QID Discharge Medication List Aspirin 81 mg PO DAILY@0700 06/20/21 [History] Furosemide [Lasix] 20 mg PO DAILY@0706/20/21 [History] Mag Hydrox/Aluminum Hyd/Simeth [Mylanta Maximum Strength Liq] 30 ml PO Q6H PRN 06/20/21 [History] Memantine [Namenda] 10 mg PO BID@0700,1900 06/20/21 [History] Mirtazapine [Remeron] 15 mg PO HS@1900 06/20/21 [History] Omeprazole 20 mg PO HS@1900 06/20/21 [History] Sertraline [Zoloft] 100 mg PO DAILY@0706/20/21 [History] Acetaminophen Tab [Tylenol] 650 mg PO Q6HR PRN tab 06/24/21 [Rx] Docusate [Colace] 100 mg PO DAILY #30 capsule 06/24/21 [Rx] Ferrous Sulfate [Iron (65 MG Elemental)] 325 mg PO BID #60 tab 06/24/21 [Rx] Heparin Sodium,Porcine [Heparin Sodium] 5,000 unit SQ Q12HR #40 each 06/24/21 [Rx] Ipratropium-Albuterol Nebulize [Duoneb 0.5 mg-3 mg/3 ml Soln] 3 ml INHALATION RT-TID ml 06/24/21 [Rx] Ipratropium-Albuterol Nebulize [Duoneb 0.5 mg-3 mg/3 ml Soln] 3 ml INHALATION RT-TID PRN ml 06/24/21 [Rx] LORazepam [Ativan] 0.5 mg PO TID@0700,1300,1900 #6 tab 06/24/21 [Rx] Meloxicam [Mobic] 7.5 mg PO DAILY PRN #30 tab 06/24/21 [Rx] Pantoprazole [Protonix] 40 mg PO AC-BRKFST tab 06/24/21 [Rx] Follow up Appointment(s)/Referral(s): Francesco Wilson MD [Primary Care Provider] - 1-2 days Tejinder Romano PAC [[employer]] - 2 Weeks Activity/Diet/Wound Care/Special Instructions: Need antibiotics on discharge Discharge Disposition: TRANSFER TO SNF/ECF
[2021-06-24 11:50] VITALS: BMI 21.7
[2021-06-24 12:10] VITALS: BP 136/74; PULSE 78; TEMP 99.5
[2021-06-24] MEDS: POTASSIUM CHLORIDE ER 20 MEQ TAB.ER PO SCH ×2 (12:20→13:10)
[2021-06-24] MEDS: IPRATROPIUM-ALBUTEROL 3 ML NEB INHALATION SCH ×2 (12:30→12:56)
--- NOTE | 2021-06-24 14:31 | P.PN ---
Subjective Progress Note Date: 06/24/21 This is a 75-year-old female who was recently admitted under orthopedic services for displaced right intertrochanteric fracture and had surgery and is being closely monitored. Patient continues with poor oral intake unable tolerate liquids and needs encouragement. Patient also has acute urinary tract infection and maintained on IV antibiotics and we'll transition to oral Augmentin suspension as urine cultures finalized showing group D enterococcus and recommend to continue for 5 days with outpatient follow-up with primary care provider and repeat testing as needed. Physical exam: Gen: This is a 75-year-old female awake, stuporous, well-developed, well- nourished. Temp is 99.5F, pulse is 78, respirations are 21, blood pressure is 136/74, oxygen saturation is 95% on room air HEENT: Head is atraumatic, normocephalic. Pupils equal, round. Sclerae is anicteric. NECK: Supple. No JVD. No lymphadenopathy. No thyromegaly. LUNGS: Manage breath sounds bilaterally with a few scattered rhonchi noted. No intercostal retractions. HEART: S1, S2 are muffled ABDOMEN: Soft. Bowel sounds are present. No masses. No tenderness. EXTREMITIES: No pedal edema. No calf tenderness. Right surgical site intact NEUROLOGICAL: Patient is stuporous, diffusely weak Assessment: Displaced right intertrochanteric femur fracture status post intertrochanteric intramedullary nailing Severe dementia Acute urinary tract infection with group D enterococcus Possible right lower lobe pneumonia possibly gram-negative, present on admission on antibiotics History of cerebrovascular accident, TIA Gastroesophageal reflux disease Hypertension Hyperlipidemia History of DJD history of gastric sleeve surgery history of breast surgery history of cholecystectomy history of depression No code, no CPR, no vent Plan: Recommend to continue with current medications and management. Pain management per primary service along with anticoagulation as patient is being discharged to ECF today. Patient with group D enterococcus urinary tract infection and will continue on oral Augmentin liquid twice daily for the next 5 days and then may discontinue. Recommend continue with encouraging oral intake and supervision with meals, aspiration precautions. Will continue to follow along closely with orthopedics during hospitalization. Due to multiple complex medical issues, prognosis is guarded. Thank you for this consultation. Plan is for discharge to ECF today. Objective - Vital Signs Vital signs: Vital Signs Temp 100.5 F H 06/24/21 08:00 Pulse 70 01/13/22 08:00 Resp 21 06/24/21 08:00 BP 157/78 06/24/21 08:00 Pulse Ox 95 06/24/21 08:00 Intake & Output 06/23/21 06/24/21 06/24/21 18:59 06:59 18:59 Intake Total 1450 Output Total 550 700 Balance -550 750 Intake: Intake, IV Titration 1350 Amount Ampicillin-Sulbactam 3 gm 200 In Sodium Chloride 0.9% 100 ml @ 200 mls/hr IVPB Q8HR [facility] Rx#:[id number] Azithromycin 500 mg In 250 Sodium Chloride 0.9% 250 ml @ 250 mls/hr IVPB DAILY [facility] Rx#:[id number] Sodium Chloride 0.9% 1, 900 000 ml @ 75 mls/hr IV . [id number] [facility] Rx#:[id number] Oral 100 Output: Urine 550 700 Other: Voiding Method Indwelling Catheter Indwelling Catheter Indwelling Catheter - Labs CBC & Chem 7: 06/24/21 07:58 06/24/21 07:58 Labs: Abnormal Lab Results - Last 24 Hours (Table) 06/24/21 06/24/21 Range/Units 07:58 07:58 RBC 2.99 L (3.80-5.40) m/uL Hgb 8.7 L (11.4-16.0) gm/dL Hct 27.4 L (34.0-46.0) % Lymphocytes # 0.7 L (1.0-4.8) k/uL Potassium 3.1 L (3.5-5.1) mmol/L Chloride 115 H (98-107) mmol/L Glucose 114 H (74-99) mg/dL Calcium 8.0 L (8.4-10.2) mg/dL Microbiology - Last 24 Hours (Table) 06/21/21 08:00 Blood Culture - Preliminary Blood No Growth after 48 hours 06/21/21 07:45 Blood Culture - Preliminary Blood No Growth after 48 hours
== END 2021-06-24 13:35 | DRG 481 ==
LOC: EEVIPCON 22:11 → EC 22:11 → 4SSUR 22:22 → 3NCARDOBS 06-21 06:45
PROVIDERS: ADMIT Orthopaedic Surgery; ATTEND Orthopaedic Surgery
PROC: 0QS606Z Reposition Right Upper Femur with Intramedullary Internal Fixation Device, Open Approach (ICD-10-PCS; principal; 2021-06-22 15:00)
DX: S72.141A Displaced intertrochanteric fracture of right femur, initial encounter for closed fracture (principal); D62 Acute posthemorrhagic anemia; N39.0 Urinary tract infection, site not specified; E78.5 Hyperlipidemia, unspecified; F03.90 Unspecified dementia, unspecified severity, without behavioral disturbance, psychotic disturbance, mood disturbance, and anxiety; B95.2 Enterococcus as the cause of diseases classified elsewhere; F32.A Depression, unspecified; Z66 Do not resuscitate; I10 Essential (primary) hypertension; K21.9 Gastro-esophageal reflux disease without esophagitis; M19.90 Unspecified osteoarthritis, unspecified site; W01.0XXA Fall on same level from slipping, tripping and stumbling without subsequent striking against object, initial encounter; Y92.129 Unspecified place in nursing home as the place of occurrence of the external cause; Z86.73 Personal history of transient ischemic attack (TIA), and cerebral infarction without residual deficits; Z87.19 Personal history of other diseases of the digestive system; Z90.49 Acquired absence of other specified parts of digestive tract; Z98.890 Other specified postprocedural states; Z98.84 Bariatric surgery status; Z79.899 Other long term (current) drug therapy; Z79.82 Long term (current) use of aspirin
CPT/HCPCS: 71045; 73502; 80048; 80053; 81001; 83735; 84100; 85025; 85610; 85730; 87040; 87077; 87086; 87186; 87635; 93005; 99285